=== PATIENT | male | born 1970 | race Caucasian/White ===

== ENCOUNTER 2017-06-15 15:34 | Emergency (ER) | payer MEDICAID ==
[~2017-06-15] VITALS: Ht 152.4 cm; Wt 81.0 kg
[2017-06-15 15:38] VITALS: Ht 152.4 cm; Wt 81.0 kg
[2017-06-15] MEDS ORDERED: CEPH-443 PO (16:59)
[2017-06-15] MEDS ORDERED: HYDR-902 PO (16:59)
[2017-06-15] MEDS ORDERED: SULF1TAB31 PO (16:59)
[2017-06-15] MEDS ORDERED: IBUP-1542 PO (16:59)
--- NOTE | 2017-06-15 17:08 | QN ---
Documentation Comment My independent concise history is right knee pain and redness. My pertinent physical exam findings are swelling over the prepatellar bursa with surrounding erythema, no joint effusion. The plan is Bactrim and Keflex as well as [place] and ibuprofen and close follow-up with a primary doctor within 24-48 hours. At this point I doubt septic joint or abscess. I believe this is most likely a prepatellar bursitis with cellulitis. FAIZAN SELBY MD Jun 15, 2017 17:08
--- NOTE | 2017-06-15 17:08 | ERA ---
ER Documentation Chief Complaint Date/Time DATE: 06/15/17 TIME: 17:00 Chief Complaint right knee pain//swelling x 1 week HPI Otherwise healthy 46-year-old male presenting with a chief complaints of right knee pain and swelling 1 week. Patient has taken Motrin for the past 1-2 days with minimal relief. Patient describes fever of 101F yesterday. Has not taken any medications today. No similar symptoms in the past. Denies medical conditions. Patient's work involves a lot of kneeling throughout the day. Patient symptoms are worse with ambulation and improved with rest. Patient also states that the pain is worse when touching it. No other aggravating factors described. Denies radiating pain, uncontrolled fever, loss of range of motion, numbness, tingling, or trauma. No recent travel. Patient has no other complaints and describes no other associated manifestations. Nursing notes have been reviewed and are consistent with history given. ROS All systems reviewed and are negative except as per history of present illness. Medications Home Meds Active Scripts Ibuprofen* (Motrin*) 600 Mg Tab, 600 MG PO Q6, #30 TAB Prov:GILBERTO LOPEZ PA-C 06/15/17 Hydrocodone/Acetaminophen (Griffin 10-325 Tablet) 1 Each Tablet, 1 TAB PO Q6H Y for PAIN, #20 TAB Prov:GILBERTO LOPEZ PA-C 06/15/17 Sulfamethoxazole/Trimethoprim* (Bactrim Ds* Tablet) 1 Each Tablet, 1 TAB PO BID , #14 TAB Prov:GILBERTO LOPEZ PA-C 06/15/17 Cephalexin* (Keflex*) 500 Mg Capsule, 500 MG PO QID for 5 Days, CAP Prov:GILBERTO LOPEZ PA-C 06/15/17 PMhx/Soc Medical and Surgical Hx: pt denies Medical Hx, pt denies Surgical Hx Hx Alcohol Use: No Hx Substance Use: No Hx Tobacco Use: No Smoking Status: Never smoker Physical Exam Vitals Vital Signs Date Time Temp Pulse Resp B/P Pulse Ox O2 Delivery O2 Flow Rate FiO2 06/15/17 15:38 98.8 86 18 130/70 99 Physical Exam Const: Overweight 46-year-old male sitting in the gurney in no acute distress Head: Atraumatic Eyes: Normal Conjunctiva ENT: Normal External Ears, Nose and Mouth. Neck: Full range of motion..~ No meningismus. Resp: Clear to auscultation bilaterally Cardio: Regular rate and rhythm, no murmurs. Posterior tibial and dorsalis pedis pulses 2+ bilaterally. Abd: Soft, non tender, non distended. Normal bowel sounds Skin: No petechiae or rashes Back: No midline or flank tenderness Ext: Right knee erythematous, warm, and moderate tender to palpation. Negative apprehension test. No streaking noted. Range of motion WNL. Neur: Awake and alert. Neurovascularly intact bilaterally. Psych: Normal Mood and Affect Procedures/MDM 46-year-old male presenting with a chief complaint of right knee pain swelling and warmth 1 week. No similar symptoms in the past. Physical examination showed swollen erythematous right knee. I had my attending Dr. Toledo evaluate the patient himself. Dr. Toledo noted there is no fluid collection or tenderness above the midline of the knee. Noted bursitis in the prepatellar area. Most likely diagnosis is infected bursitis versus cellulitis. There is little suspicion for septic arthritis or systemic involvement at this time. Patient will be prescribed Keflex, Bactrim, ibuprofen, and Griffin. Imaging modalities are not indicated at this time. I have spoke with the patient regarding their condition and future management. They have verbally responded that they understand their status and treatment plan. The patients vitals are stable, and their current condition is appropriate for discharge. The patient will be given discharge instructions with return precautions. Departure Diagnosis: Primary Impression: Bursitis Qualified Code: M70.41 - Prepatellar bursitis of right knee Additional Impression: Cellulitis Qualified Code: L03.115 - Cellulitis of right lower extremity Condition: Stable Patient Instructions: What Is Bursitis?, Cellulitis Additional Instructions: Saw un seguimiento con [facility] dentro de los prximos 1-3 noble para fernanda evaluaci n ms completa y fernanda posible derivacin a un especialista. Devuelva el departamento de emergencia inmediatamente si los sntomas empeoran o cambian. Si tiene alguna pregunta con respecto a los medicamentos, consulte con [facility] o con nosotros antes de salir. Si se producen reacciones adversas mientras de[facility] medicamentos, suspenda el tratamiento y regrese inmediatamente al servicio de urgencias. [facility] segn las indicaciones y complete el curso completo del tratamiento. GILBERTO LOPEZ PA-C Jun 15, 2017 17:08
== END 2017-06-15 17:25 | disposition home or self-care (01) ==
LOC: FTE 15:34
DX: M70.41 Prepatellar bursitis, right knee (principal); L03.115 Cellulitis of right lower limb; Y93.9 Activity, unspecified
CPT/HCPCS: 99284